=== PATIENT | female | born 1950 | race African-American/Black ===

== ENCOUNTER 2018-06-30 12:39 | Inpatient (IN) | payer MEDICARE, MEDICAID ==
[~2018-06-30] VITALS: Ht 177.8 cm; Wt 54.4 kg
[2018-06-30] VITALS (7 sets, daily range): BP systolic 87–116; BP diastolic 28–50
--- NOTE | 2018-06-30 12:41 | NUR ---
PT BIBA BLS TO BED 6
--- NOTE | 2018-06-30 12:42 | NUR ---
PT. BIB BLS FROM HOME DUE TO WEAKNESS SINCE THIS MORNING. PT. ARRIVES LETHARGIC GCS: 13 ABLE TO OPEN EYES WHEN SPOKEN TO. BS: 84 IN FIELD . BS UPON ARRIVAL 54. ER MD BARKER NOTIFIED. PT STATES " I DONT FEEL GOOD". PER DAUGHTER " SHE HAS DIARRHEA THIS MORNING ONLY ONCE AND SHE SAID SHE FELT WEAK. THIS USUALLY HAPPENS WHEN SHE DOESNT TAKE HER MEDICATION". NO PAIN AT THIS TIME. AFEBRILE AT THIS TIME. RR EVEN AND UNLABORED. VSS STABLE. SKIN WARM AND DRY TO TOUCH. SAFETY PRECAUTIONS IMPLEMENTED. WILL CONTINUE TO MONITOR. ER MD MADE AWARE.
--- NOTE | 2018-06-30 12:43 | NUR ---
BS: 54; ER MD BARKER NOTIFIED. PT PROVIDED WITH 2 ORANGE JUICE BOXES, TOLERATED. WELL.
--- NOTE | 2018-06-30 13:10 | NUR ---
BS: 53; ER MD BARKER NOTIFIED. NO FURTHER ORDERS AT THIS TIME. ORDERED FOOD TRAY
[2018-06-30] MEDS ORDERED: NACL 0.9% 500 ML IV SCH (13:11)
--- NOTE | 2018-06-30 13:20 | NUR ---
FOOD TRAY PROVIDED TO PATIENT. DAUGHTER AT BEDSIDE, HELPING FEED PATIENT AT THIS TIME
[2018-06-30] MEDS ORDERED: SYN.1 PO (13:22)
[2018-06-30] MEDS ORDERED: HYDR10TA1 PO (13:22)
[2018-06-30] MEDS ORDERED: DEXTROSE 10% 250 ML IV SCH ×2 (14:05→16:15)
[2018-06-30] MEDS ORDERED: DEXTROSE 10% 1,000 ML IV ONE ×2 (14:22→16:36)
[2018-06-30 14:26] LABS: BASOPHILS % (AUTO) 0.4 % (0.0-2.0); EOSINOPHILS # (AUTO) 0.3 K/uL (0-0.4); EOSINOPHILS % (AUTO) 3.5 % (0.0-4.0); HEMATOCRIT 34.9 % (36-48); HEMOGLOBIN 11.1 g/dL (12.0-16.0); LYMPHOCYTES # (AUTO) 1.3 K/uL (2.5-16.5); LYMPHOCYTES % (AUTO) 18.5 % (20.5-51.1); MEAN CORPUSCULAR HEMOGLOBIN 25 pg (27-31); MEAN CORPUSCULAR HGB CONC 32 g/dL (33-37); MONOCYTES # (AUTO) 0.5 K/uL (0.8-1.0); MONOCYTES % (AUTO) 6.4 % (1.7-9.3); NEUTROPHILS # (AUTO) 5.2 K/uL (1.8-7.7); NEUTROPHILS % (AUTO) 71.2 % (42.2-75.2); PLATELET COUNT (AUTO) 213 K/uL (140-450); RED BLOOD CELL COUNT(AUTO) 4.42 MIL/uL (4.20-5.40); RED CELL DISTRIBUTION WIDTH 14.8 % (11.6-13.7); WHITE BLOOD COUNT (AUTO) 7.3 K/uL (4.8-10.8)
--- NOTE | 2018-06-30 14:28 | NUR ---
PT. STATES "I FEEL BETTER". VSS. AT BEDSIDE. WILL CONTINUE TO MONITOR. ER MD BARKER AT BEDSIDE.
[2018-06-30 14:52] LABS: ALBUMIN 3.2 g/dL (3.4-5.0); CARBON DIOXIDE 21.2 mmol/L (21-32); CREATININE 1.1 mg/dL (0.6-1.3); POTASSIUM 4.2 mmol/L (3.5-5.1); TOTAL BILIRUBIN 0.4 mg/dL (0.0-1.0)
--- NOTE | 2018-06-30 15:17 | NUR ---
PT. UNABLE TO PROVIDE URINE AT THIS TIME AND REFUSED CATHETER. ER MD BARKER MADE AWARE, PER DOCTOR " IT IS FINE URINE IS NOT NEEDED RIGHT NOW"
[2018-06-30 15:18] LABS: PROTHROMBIN TIME 9.9 secs (10.8-13.4)
[2018-06-30] MEDS ORDERED: ASPIRIN 81 MG TAB.CHEW PO ONE (15:45)
--- NOTE | 2018-06-30 15:50 | NUR ---
PT. HAS BECOME NON COOPERATIVE AT THIS TIME, PT. SOILED SELF AND WAS CHANGED. DAUGHTER STATES " THIS IS NOT LIKE HER THIS IS NOT LIKE MY MOM". ER MD BARKER MADE AWARE.
--- NOTE | 2018-06-30 15:50 | NUR ---
Note mariano in EDM - 06/30/18 at 1649 by PANFILO PT. IS NON COOPERATIVE AT THIS TIME, CAN NOT FOLLOW DIRECTIONS APPROPRIATELY, PT. SOILED SELF AND DAUGHTER STATES " THIS IS NOT LIKE HER. ER MD BARKER MADE AWARE.
--- NOTE | 2018-06-30 15:50 | NUR ---
Note mariano in EDM - 06/30/18 at 1651 by BEN PT. HAS BECOME NON COOPERATIVE AT THIS TIME, PT. SOILED SELF AND WAS CHANGED. DAUGHTER STATES " THIS IS NOT LIKE HER THIS IS NOT LIKE MY MOM". ARTHUR BARKER MADE AWARE.
[2018-06-30] MEDS ORDERED: HYDROcodone/APAP 5/325 MG 1 TAB TAB PO PRN (16:15)
[2018-06-30] MEDS ORDERED: LORazepam 2 MG/ML VIAL IM/IVP PRN (16:15)
[2018-06-30] MEDS ORDERED: DOCUSATE SODIUM 100 MG GELCAP PO PRN (16:15)
[2018-06-30] MEDS ORDERED: ACETAMINOPHEN 325 MG TAB PO PRN (16:15)
[2018-06-30] MEDS: ASPIRIN 81 MG TAB.CHEW PO SCH (16:33)
[2018-06-30] MEDS ORDERED: ENOXAPARIN 60 MG/0.6 ML SYR SUBQ ONE (16:35)
[2018-06-30] MEDS ORDERED: ENOXAPARIN 40 MG/0.4 ML SYR SUBQ ONE (16:40)
--- NOTE | 2018-06-30 16:51 | NUR ---
101 TEMPORAL TEMPERATURE. ER MD BARKER MADE AWARE.
[2018-06-30] MEDS ORDERED: NACL 0.9% 1,000 ML IV ONE (16:55)
--- NOTE | 2018-06-30 16:55 | NUR ---
GCS 10 AT THIS TIME, UNCOOPERATIVE AND LETHARGIC. ER MD BARKER MADE AWARE.
--- NOTE | 2018-06-30 17:05 | NUR ---
TEMP 101.[address] CHEN MADE AWARE STATED " I WILL PUT ORDERS FOR HER".
--- NOTE | 2018-06-30 17:05 | NUR ---
Osorio quintana in EDM - 06/30/18 at 1709 by MEDMARGOT TEMP 101.8 TEMP . ARTHUR ROCA MADE AWARE
--- NOTE | 2018-06-30 17:12 | NUR ---
PT TAKEN TO ICU BY TAYLOR CHAVARRIA AND EMT BIANCA
[2018-06-30] MEDS ORDERED: KETOROLAC 30 MG/ML VIAL IVP SCH (17:16)
[2018-06-30] MEDS ORDERED: HYDROCORTISONE 10 MG TAB PO SCH ×2 (17:16→21:00)
[2018-06-30] MEDS ORDERED: LEVOTHYROXINE 0.1 MG TAB PO SCH (17:17)
--- NOTE | 2018-06-30 17:27 | NUR ---
ADMITTED FROM ER THIS 67 YR OLD FEMALE PER [facility]. [facility]. BY ER NURSES AND PT'S SON WITH CC OF ABD PAIN,VOMITING AND DIARRHEA TODAY. PT IS LETHARGIC. ASSUMES POSITION. DOES NOT RESPOND VERBALLY ABLE TO FOLLOW SIMPLE COMMANDS AT TIMES. PLACED ON FUEL VERIFICATION TECHNICIAN.IN SR WITHOUT ECTOPICS. IV D5 0.9 NS STARTED AT 100 ML/HR STARTED ON RT AC IV SITE. DR. RODRIGUEZ AT BEDSIDE. SPOKE TO PT'S FAMILY RE: PLAN OF CARE. Addendum: 06/30/18 at 2007 by Francia Hatfield RN FUEL VERIFICATION TECHNICIAN SHOWS AFIB CONTROLLED RVR.
--- NOTE | 2018-06-30 17:27 | NUR ---
Patient will be admitted to care of DR. ADRIAN . Admited to ICU . Will go to rooM #5 . Belongings list completed. Report to TAYLOR NAVA .
[2018-06-30] MEDS: BLOOD GLUCOSE MONITORING 1 DEV DEV FS SCH ×2 (17:30→18:36)
--- NOTE | 2018-06-30 17:39 | NUR ---
BS CHECKED 134, DR. SALVADOR AWARE.
--- NOTE | 2018-06-30 17:50 | NUR ---
UNABLE TO TAKE PT.F TO CT SCAN. UNCOOPERATIVE. UNABLE TO STAY ON HER ON HER BACK. KEEPS ON RETURNING TO POSITION.
--- NOTE | 2018-06-30 17:50 | NUR ---
TORADOL 30 MG IVP GIVEN ORDERED.
[2018-06-30] MEDS ORDERED: ACETAMINOPHEN 650 MG SUPP RC PRN (17:55)
[2018-06-30 17:58] LABS: CHOL/HDL RATIO 3.4 (1-4.5); MAGNESIUM 1.6 mg/dL (1.8-2.4); PHOSPHORUS 2.3 mg/dL (2.5-4.9); THYROID STIMULATING HORMONE 0.06 uIU/mL (0.34-3.74)
--- NOTE | 2018-06-30 18:00 | NUR ---
UNABLE TO TAKE PO MEDS DUE TO ALOC. DR. SALVADOR AWARE.
--- NOTE | 2018-06-30 18:06 | NUR ---
TYLENOL 650 MG SUPP. 1 RECTALLY GIVEN FOR FEVER.
[2018-06-30] MEDS ORDERED: DEXTROSE 50% 50 ML SYR IVP PRN (18:10)
[2018-06-30] MEDS ORDERED: ALBUTEROL SULFATE/IPRATROPIU 3 ML SOL IH PRN (18:10)
[2018-06-30] MEDS ORDERED: HYDROmorphone 1 MG/ML AMP IVP SCH (18:40)
[2018-06-30] MEDS ORDERED: LORazepam 2 MG/ML VIAL IVP SCH (18:40)
[2018-06-30] MEDS: DEXT 5% /NACL 0.9% 1,000 ML IV SCH (18:45)
--- NOTE | 2018-06-30 18:45 | NUR ---
BAXTER CATH FR. 16 INSERTED ASEPTICALLY. URINE SPECIMEN SENT TO THE LAB.
[2018-06-30] MEDS ORDERED: HYDROCORTISONE NA SUCC 100 MG/2 ML VIAL IV SCH ×3 (18:46→21:00)
[2018-06-30] MEDS ORDERED: SODIUM PHOS / POTASSIUM PHOS 1 PKT PDR PO SCH (18:51)
[2018-06-30] MEDS ORDERED: MAG SULF 2000 MG/WATER PREMIX 50 ML IV SCH (19:00)
[2018-06-30] MEDS ORDERED: NITROGLYCERIN 0.4 MG TAB SL PRN (19:00)
--- NOTE | 2018-06-30 19:00 | NUR ---
DR. AGUILERA SPOKE TO PT'S DAUGHTER RE: INSERTION OF CENTRAL LINE. CONSENT OBTAINED.
--- NOTE | 2018-06-30 19:10 | NUR ---
DR. BOWIE HERE TO SEE AND EXAMINE PT. REPORT GIVEN TO NAKUL.
--- NOTE | 2018-06-30 19:30 | NUR ---
RECEIVED REPORT FROM MORNING RN FOR CONTINUITY OF CARE. DR. BOWIE AND THE RESIDENT'S DOCTOR ARE AT BEDSIDE TO INSERT CENTRAL LINE. PT IS RESPONSIVE AND ABLE TO MAKE NEEDS KNOWN. PT WAS ABLE TO FOLLOW COMMAND. PT IN ROOM AIR. LUNG SOUNDS CLEAR. RESPIRATIONS EVEN AND UNLABORED. S1+S2 HEARD. SR ON MONITOR. PULSES ARE PALPABLE. BP TO BE MONITOR D/T LOW BP. ABDOMEN ROUND, SOFT, AND NONDISTENDED. BS ACTIVE. BAXTER CATHETER IN PLACE AND DRAINING CLEAR, YELLOW URINE. PT CURRENTLY HAS RIGHT AC 22G THAT IS PATENT, INTACT AND ASYMPTOMATIC.
--- NOTE | 2018-06-30 19:47 | NUR ---
CHECKED PT'S BLOOD GLUCOSE PER DR. POLLOCK; CURRENT PT'S BG 126. NO NEW ORDERS RECEIVED.
[2018-06-30] MEDS ORDERED: VANCOMYCIN PER PHARMACY MC PRN (20:05)
[2018-06-30] MEDS: ATORVASTATIN 20 MG TAB PO SCH (20:36)
[2018-06-30] MEDS ORDERED: VANCOMYCIN 1,000 MG VIAL ONE (20:37)
[2018-06-30 21:00] LABS: APPEARANCE,URINE CLEAR (CLEAR); BILIRUBIN,URINE NEGATIVE (NEGATIVE); BLOOD, URINE MODERATE (NEGATIVE); COLOR,URINE YELLOW (YELLOW); LEUKOCYTE ESTERASE ,URINE NEGATIVE (NEGATIVE); NITRITE, URINE NEGATIVE (NEGATIVE); UGLUCOSE NEGATIVE (NEGATIVE)
[2018-06-30] MEDS ORDERED: VANCOMYCIN HCL 750 MG in DEXTROSE 5% 250 ML IV SCH (21:00)
--- NOTE | 2018-06-30 21:00 | NUR ---
PT'S FAMILY STILL AT BEDSIDE AT THIS TIME. PT IS RESPONSIVE AND SHE IS TALKING TO HER FAMILY. PT APPEARS TO UNDERSTAND WHAT IS GOING ON. TEACHING WAS GIVEN AND PT APPEARS TO HAVE AN UNDERSTANDING
[2018-06-30 21:16] LABS: BARBITURATE, URINE NEG. ng/ml (NEG <=200); BENZODIAZEPINE, URINE NEG. ng/mL (NEG <=200); CANNABINOID, URINE NEG. ng/mL (NEG <=50); COCAINE, URINE NEG. ng/mL (NEG <=300); OPIATE, URINE NEG. ng/mL (NEG <=2000); PHENCYCLIDINE SCREEN,URINE NEG. ng/mL (NEG <=25)
[2018-06-30] MEDS ORDERED: SODIUM PHOS / POTASSIUM PHOS 1 PKT PDR ONE (21:27)
[2018-06-30] MEDS: ONDANSETRON 4 MG/2 ML VIAL IM/IVP PRN (21:36)
[2018-06-30] MEDS ORDERED: metroNIDAZOLE 500 MG/NS PREMIX 100 ML IV SCH (22:30)
[2018-06-30] MEDS ORDERED: LEVOFLOXACIN 500 MG/D5W PREMIX 100 ML IV SCH (23:00)
[2018-07-01] VITALS (51 sets, daily range): BP systolic 50–137; BP diastolic 21–85
[2018-07-01] MEDS ORDERED: PIPER/TAZO 3.375GM/D5W PREMIX 50 ML IV SCH
--- NOTE | 2018-07-01 00:28 | NUR ---
INFORMED DR. POLLOCK REGARDING PT'S BP.
--- NOTE | 2018-07-01 00:30 | NUR ---
DR. POLLOCK AT BEDSIDE. PT WAS SEEN. CENTRAL LINE WAS PULLED OUT ABOUT [address] POLLOCK. CHEST X-RAY TO CONFIRM PLACEMENT AGAIN. RADIOLOGY CALLED TO NOTIFY.
[2018-07-01] MEDS ORDERED: NOREPINEPHRINE 8 MG in DEXTROSE 5% 250 ML IV PRN (02:05)
[2018-07-01] MEDS ORDERED: NACL 0.9% 1,000 ML IV ONE (02:05)
--- NOTE | 2018-07-01 02:15 | NUR ---
DR. POLLOCK STILL AT BEDSIDE. INFORMED THAT PT HAS LOW BP STILL. RECEIVED NEW ORDERS.
[2018-07-01] MEDS ORDERED: NOREPINEPHRINE 4 MG/4 ML VIAL IV ONE (02:26)
--- NOTE | 2018-07-01 02:50 | NUR ---
PT STARTED ON LEVOPHED DRIP. PT DENIES FEELING DIZZY.
[2018-07-01] MEDS ORDERED: DOPamine 400 MG/D5W PREMIX 250 ML IV SCH (03:10)
[2018-07-01] MEDS: DEXT 5% /NACL 0.9% 1,000 ML IV SCH ×2 (03:13→13:25)
--- NOTE | 2018-07-01 03:25 | NUR ---
RESPIRATIONS ARE EVEN AND UNLABORED. NO CHANGE IN CONDITION AT THIS TIME. STILL MONITORING PT'S BLOOD PRESSURE. PT AROUSABLE TO NAME. PT STILL IN ROOM AIR. DENIES ANY DISCOMFORT AT THIS TIME.
[2018-07-01] MEDS ORDERED: DOPamine 400 MG/D5W PREMIX 250 ML IV ONE (03:38)
--- NOTE | 2018-07-01 05:08 | NUR ---
VS STABLE. SB ON MONITOR. NO CHANGE IN PT CONDITION.
[2018-07-01] MEDS: PANTOPRAZOLE 40 MG TABEC PO SCH (05:32)
[2018-07-01] MEDS: LEVOTHYROXINE 0.1 MG TAB PO SCH (05:32)
[2018-07-01] MEDS: HYDROCORTISONE NA SUCC 100 MG/2 ML VIAL IV SCH ×3 (05:32→20:52)
[2018-07-01] MEDS: metroNIDAZOLE 500 MG/NS PREMIX 100 ML IV SCH ×3 (05:32→20:53)
[2018-07-01 06:39] LABS: CARBON DIOXIDE 22.2 mmol/L (21-32); CREATININE 1.4 mg/dL (0.6-1.3); POTASSIUM 4.2 mmol/L (3.5-5.1)
[2018-07-01 06:41] LABS: BASOPHILS % (AUTO) 0.1 % (0.0-2.0); HEMATOCRIT 30.2 % (36-48); HEMOGLOBIN 9.8 g/dL (12.0-16.0); LYMPHOCYTES # (AUTO) 0.5 K/uL (2.5-16.5); LYMPHOCYTES % (AUTO) 7.8 % (20.5-51.1); MEAN CORPUSCULAR HEMOGLOBIN 26 pg (27-31); MEAN CORPUSCULAR HGB CONC 33 g/dL (33-37); MEAN CORPUSCULAR VOLUME 79.1 fL (80-94); MONOCYTES # (AUTO) 0.1 K/uL (0.8-1.0); MONOCYTES % (AUTO) 1.1 % (1.7-9.3); NEUTROPHILS # (AUTO) 5.3 K/uL (1.8-7.7); PLATELET COUNT (AUTO) 183 K/uL (140-450); RED BLOOD CELL COUNT(AUTO) 3.82 MIL/uL (4.20-5.40); RED CELL DISTRIBUTION WIDTH 14.7 % (11.6-13.7); WHITE BLOOD COUNT (AUTO) 5.8 K/uL (4.8-10.8)
[2018-07-01 06:56] LABS: MAGNESIUM 2.1 mg/dL (1.8-2.4); PHOSPHORUS 2.7 mg/dL (2.5-4.9)
--- NOTE | 2018-07-01 07:02 | NUR ---
REPORT GIVEN TO MORNING RN, ALPHONSO, FOR CONTINUITY OF CARE. PT VS STABLE AT THIS TIME.
--- NOTE | 2018-07-01 07:03 | NUR ---
RECEIVED BEDSIDE REPORT FROM REMANUFACTURING TECHNICIAN RN, NAKUL, FOR CONTINUITY OF CARE. PATIENT IS AAOX4, ABLE TO FOLLOW COMMANDS AND MAKE NEEDS KNOWN. PATIENT SKIN IS INTACT, HAS CENTRAL LINE TO RIGHT IJ. PATIENT BREATHING IS EVEN AND UNLABORED. SHE IS FIRST DEGREE AVB ON MONITOR. DENIES ANY N, V, PAIN, SOB. PATIENT HAS BAXTER CATHETER IN PLACE TO CLEAR YELLOW URINE. SAFETY PRECAUTIONS ASSESS AND ENFORCED. CALL LIGHT WITHIN REACH. NO SIGNS OF DISTRESS NOTED. WILL CONTINUE TO MONITOR
--- NOTE | 2018-07-01 07:13 | NUR ---
ENDORSED TO TAYLOR WERNER THAT PT HAS HER IPHONE WITH RED CASE AT BEDSIDE, WELL HER DENTURES.
--- NOTE | 2018-07-01 07:49 | NUR ---
PT WENT FOR CT SCAN. I HOLD TREATMENT AND GIVING WHEN PATIENT COMING BACK.
[2018-07-01] MEDS: ONDANSETRON 4 MG/2 ML VIAL IM/IVP PRN (08:13)
--- NOTE | 2018-07-01 08:27 | NUR ---
PATIENT HAS BEEN SCREENED AND CATEGORIZED HIGH NUTRITION RISK. PATIENT WILL BE SEEN WITHIN 1-2 DAYS OF ADMISSION. 07/01/18-07/02/[address]
--- NOTE | 2018-07-01 08:50 | NUR ---
PATIENT OFF UNIT FOR CT SCAN OF HEAD, PATIENT TOLERATED WELL.
[2018-07-01] MEDS ORDERED: LISINOPRIL 5 MG TAB PO SCH (09:00)
--- NOTE | 2018-07-01 11:04 | NUR ---
DR. POST IN TO SEE AND EXAMINE PATIENT, UPDATED ON PATIENT'S CONDITION. WILL FOLLOW UP WITH ANY ORDERS.
--- NOTE | 2018-07-01 11:50 | NUR ---
DR. PHILLIPS IN TO SEE AND EXAMINE PATIENT, UPDATED ON PATIENT'S CONDITION. WILL FOLLOW UP WITH ANY ORDERS.
[2018-07-01] MEDS: BLOOD GLUCOSE MONITORING 1 DEV DEV FS SCH ×3 (11:53→21:52)
--- NOTE | 2018-07-01 12:00 | NUR ---
PATIENT'S AT BEDSIDE, NO SIGNS OF DISTRESS NOTED. DENIES ANY N, V, PAIN. WILL CONTINUE TO MONITOR
[2018-07-01] MEDS: MIDODRINE 5 MG TAB PO SCH ×2 (12:26→18:32)
[2018-07-01] MEDS ORDERED: PROBIOTIC SCREEN 1 EA MISC MC PRN (13:40)
--- NOTE | 2018-07-01 13:59 | NUR ---
07/01/18 RD INITIAL ASSESSMENT COMPLETED PLEASE REFER TO NUTRITION ASSESSMENT UNDER CARE ACTIVITY FOR ESTIMATED NUTRITIONAL NEEDS. 1. RECOMMEND CONTINUE NPO DIET, UNTIL MEDICALLY APPROPRIATE TO BEGIN NUTRITION 2. WHEN/IF PT MEDICALLY STABLE TO BEGIN NUTRITION, CONSIDER ADVANCE DIET TOLERATED TO RENAL CCHO [address] TO FOLLOW-UP 2-3 DAYS, HIGH RISK MICHELLE TOPETE RD
[2018-07-01] MEDS: NACL 0.9% 1,000 ML IV SCH (15:12)
--- NOTE | 2018-07-01 15:21 | NUR ---
PATIENT DENIES ANY N, V, OR PAIN. WILL CONTINUE TO MONITOR
--- NOTE | 2018-07-01 17:55 | NUR ---
PATIENT FAMILY AT BEDSIDE, PATIENT DENIES ANY N, V, PAIN. CALL LIGHT WITHIN REACH, WILL CONTINUE TO MONITOR
--- NOTE | 2018-07-01 18:29 | NUR ---
* ST NOTE * Pt seen at bedside w/granddaughter present. Pt consenting to evaluation w/granddaughter present. Pt alert, cooperative and engaged throughout session, reporting no c/o pain at this time. Bedside dysphagia and oral mechanism exams completed. See evaluation report for further details. Pt tolerating 6/6 alternating PO trials of regular solid saltine crackers as well as 4/4 alternating PO trials of thin liquid grape juice via a straw, all w/o s/s of aspiration. Pt also tolerating 3/3 PO trials of thin liquid soup via a bowl w/o s/s of aspiration, exhibiting clear voicing WFL w/o wet or gargly vocal quality after PO intake. Pt and granddaughter education completed re: aspiration precautions and safe swallow compensatory strategies pt and caregivers/family could utilize to aid pt w/swallow function, w/pt demonstrating 100% follow through as trained by clinician and w/granddaughter verbalizing understanding and agreement w/clinician's recommendations. It is thus recommended pt's PO diet consistency be upgraded to regular solids w/thin liquids for all meals once pt is medically cleared to advance her diet consistency. No further ST follow up recommended at this time. Pt, caregiver/granddaughter and caregiver/nsg education completed re: results of evaluation; benefits of abiding by aspiration precautions; and prognosis for improvement; with pt, caregiver/granddaughter and caregiver/nsg verbalizing understanding and agreement w/clinician's recommendations. Recommend: - PO diet consistency of REGULAR SOLIDS W/THIN LIQUIDS for all meals once pt has been medically cleared to advance diet consistency - WHOLE PILL MEDICATION ADMINISTRATION - Cue/Remind pt to abide by aspiration precautions during PO intake of solids/liquids/medication No further ST follow up recommended at this time. G8996 CI G8997 CH G8998 NOMS Level 1 Time In/Out 17:45 - 18:15
--- NOTE | 2018-07-01 19:23 | NUR ---
ENDORSED CONTINUITY OF CARE TO DIRECTOR DIGITAL COMMUNICATIONS RNARMANDO. NO SIGNS OF DISTRESS AT THIS TIME
--- NOTE | 2018-07-01 19:30 | NUR ---
RECEIEVED REPORT FROM DAY SHIFT NO ACUTE DISTRESS NOTED. WILL CONTINUE TO MONITOR.
--- NOTE | 2018-07-01 19:45 | NUR ---
PT AOX2 TALKING WITH FAMILY@ BEDSIDE, MOVING EXTREMITIES IN BED. PT DENIES CP/ SOB @ THIS TIME. NSR 60-70S +1 PEDAL PULSES. LUNGS CLEAR TO AUSCULTATION EVEN AND UNLABORED. ABD SOFT NON DISTENDED. TOLERATING LIQUID DIET. BAXTER IN PLACE, CLEAR YELLOW URINE NOTED. SKIN INTACT. CENTRAL LINE IN PLACE R IJ PATENT IVF INFUSING. WILL CONTINUE TO OBSERVE.
[2018-07-01] MEDS: LEVOFLOXACIN 250 MG/D5 PREMIX 50 ML IV SCH (20:53)
[2018-07-01] MEDS: ATORVASTATIN 20 MG TAB PO SCH (20:53)
[2018-07-02] VITALS (7 sets, daily range): BP systolic 111–152; BP diastolic 52–82
--- NOTE | 2018-07-02 00:20 | NUR ---
PT ASLEEP RESTING IN BED, PT AROUSABLE DENIES PAIN @ THIS TIME WILL CONTINUE TO OBSERVE.
[2018-07-02] MEDS: NACL 0.9% 1,000 ML IV SCH (02:30)
[2018-07-02 06:04] LABS: BASOPHILS # (AUTO) 0.1 K/uL (0.00-0.22); BASOPHILS % (AUTO) 0.5 % (0.0-2.0); HEMOGLOBIN 8.8 g/dL (12.0-16.0); LYMPHOCYTES % (AUTO) 7.3 % (20.5-51.1); MEAN CORPUSCULAR HEMOGLOBIN 26 pg (27-31); MEAN CORPUSCULAR HGB CONC 32 g/dL (33-37); MEAN CORPUSCULAR VOLUME 79.1 fL (80-94); MONOCYTES # (AUTO) 0.4 K/uL (0.8-1.0); MONOCYTES % (AUTO) 3.4 % (1.7-9.3); NEUTROPHILS # (AUTO) 11.6 K/uL (1.8-7.7); NEUTROPHILS % (AUTO) 88.8 % (42.2-75.2); PLATELET COUNT (AUTO) 147 K/uL (140-450); RED BLOOD CELL COUNT(AUTO) 3.42 MIL/uL (4.20-5.40); RED CELL DISTRIBUTION WIDTH 14.9 % (11.6-13.7); WHITE BLOOD COUNT (AUTO) 13.1 K/uL (4.8-10.8)
[2018-07-02] MEDS: HYDROCORTISONE NA SUCC 100 MG/2 ML VIAL IV SCH (06:05)
[2018-07-02] MEDS: metroNIDAZOLE 500 MG/NS PREMIX 100 ML IV SCH ×3 (06:05→21:04)
[2018-07-02] MEDS: PANTOPRAZOLE 40 MG TABEC PO SCH (06:06)
[2018-07-02] MEDS: BLOOD GLUCOSE MONITORING 1 DEV DEV FS SCH ×4 (06:06→20:04)
[2018-07-02] MEDS: LEVOTHYROXINE 0.1 MG TAB PO SCH (06:06)
[2018-07-02 06:17] LABS: T4 (THYROXINE) 6.8 ug/dL (4.5-12.0)
--- NOTE | 2018-07-02 06:30 | NUR ---
PT ARRIVED TO UNIT VIA WHEELCHAIR. PT AMBULATED TO BED. RECEIVED REPORT FROM ICU NURSE ARMANDO-TAYLOR AT BEDSIDE. PT AOX2, ON ROOM AIR WITH RIGHT IJ CENTRAL LINE IN PLACE RUNNING NS @100ML/HR. PT ALSO HAS A RIGHT FA #22G- SL. BAXTER CATHETER IN PLACE. DISCUSSED PLAN OF CARE AND PT VERBALIZED UNDERSTANDING. VITAL SIGNS TAKEN AND TOLERATED WELL. NO S/S OF RESPIRATORY DISTRESS OR DISCOMFORT NOTED AT THIS TIME. BED IN LOWEST POSITION, BED BREAKS ON, BOTH SIDE RAILS UP, FALL PRECAUTIONS IN PLACE. WILL CONTINUE TO MONITOR.
--- NOTE | 2018-07-02 06:30 | NUR ---
ENDORSED CARE TO TELE NURSE FOR TRANSFER OF CARE.
[2018-07-02 06:35] LABS: ANION GAP 11.5 (8-16); CARBON DIOXIDE 22.6 mmol/L (21-32); CREATININE 1.1 mg/dL (0.6-1.3); POTASSIUM 4.1 mmol/L (3.5-5.1)
[2018-07-02 06:42] LABS: MAGNESIUM 2.1 mg/dL (1.8-2.4); PHOSPHORUS 2.9 mg/dL (2.5-4.9)
[2018-07-02] MEDS: MIDODRINE 5 MG TAB PO SCH (07:06)
--- NOTE | 2018-07-02 07:06 | NUR ---
SCHEDULED MEDICATION GIVEN AND TOLERATED WELL. NO S/S OF RESPIRATORY DISTRESS OR DISCOMFORT NOTED AT THIS TIME. WILL CONTINUE TO MONITOR.
--- NOTE | 2018-07-02 07:14 | NUR ---
ENDORSED PT CARE TO DAY SHIFT NURSE OTILIA FOR CONTINUITY OF CARE.
--- NOTE | 2018-07-02 07:15 | NUR ---
RECEIVED REPORT FROM THE HOLLOW HANDLE BENCH WORKER NURSE AT BEDSIDE FOR CONTINUITY OF CARE. PT IS AWAKE AND ORIENTED X4. INTRODUCED MYSELF AND UPDATED THE BOARD. PT IS ON TELE. NO SIGNS OF DISTRESS. PER HOLLOW HANDLE BENCH WORKER RN AND PT, PT IS AMBULATORY. SKIN IS INTACT. R IJ AND R FA 22G SL. PT IS GETTING NS AT 100ML VIA IJ. BAXTER CATH IN PLACE. NO COMPLAINTS OF PAIN. DENIES NAUSEA OR VOMITING. SOME ABD PAIN. PER PT, SHE NEEDS TO GO TO THE BATHROOM TO HAVE A BM. DISCONNECTED THE IV SO SHE CAN MOVE FREELY. PT HAD ABOUT 200ML IN HER BAXTER BAG. PT WALKED TO THE BATHROOM. WILL CONTINUE TO MONITOR PT.
--- NOTE | 2018-07-02 07:30 | NUR ---
PT HAD DIARRHEA. COLLECTED SAMPLE. PER C-DIFF PROTOCOL, THIS IS THE FIRST BM IN THE PAST 2 DAYS. WE ARE TO HAVE 3 LIQUID BM WITHIN 24 HR AND PT HAS BEEN ON FLAGYL. PER CHARGE NURSE, THROW AWAY THE BM SAMPLE. WAIT FOR MORE EPISODES OF DIARRHEA.
--- NOTE | 2018-07-02 08:30 | NUR ---
ROUNDING ON PT. PER , D/C SAHIL WORLEY, CANCEL C-DIFF ORDER, D/C TOMORROW.
[2018-07-02] MEDS: LACTOBACILLUS RHAMNOSUS GG 1 EACH CAP PO SCH (08:50)
[2018-07-02] MEDS: ASPIRIN 81 MG TAB.CHEW PO SCH (08:50)
--- NOTE | 2018-07-02 08:55 | NUR ---
ADMINISTERED MORNING MEDS. ASKED THE MD REGARDING GIVING ASPIRIN AND HEPARIN. PER MD, OK TO GIVE. PT TOLERATED WELL. WILL CONTINUE TO MONITOR PT.
[2018-07-02 09:17] LABS: FOLLICLE STIMULATING HORMONE 19.9 mIU/mL (.); LUTEINIZING HORMONE 18.6 mIU/mL (.)
--- NOTE | 2018-07-02 11:09 | NUR ---
D/C'D BAXTER CATHETER. PT TOLERATED WELL. WILL CONTINUE TO MONITOR PT.
--- NOTE | 2018-07-02 11:40 | NUR ---
DC'D IVF ORDERED.
--- NOTE | 2018-07-02 13:41 | NUR ---
PT ON THE PHONE WITH HER DAUGHTER. ASKED PT IF SHE HAD ANOTHER BM TODAY. SHE STATED NO. ONLY 1 EPISODE SO FAR TODAY. DENIES NAUSEA OR VOMITING. NO COMPLAINTS. WILL CONTINUE TO MONITOR PT.
--- NOTE | 2018-07-02 16:10 | NUR ---
PT VISITING WITH FAMILY. NO SIGNS OF DISTRESS. WILL CONTINUE TO MONITOR PT.
[2018-07-02] MEDS ORDERED: HYDROCORTISONE 10 MG TAB PO SCH (17:00)
--- NOTE | 2018-07-02 19:30 | NUR ---
ENDORSED PT TO THE JOB SITE SUPERINTENDENT NURSE AT BEDSIDE FOR CONTINUITY OF CARE. PT IS IN STABLE CONDITION.
--- NOTE | 2018-07-02 19:35 | NUR ---
RECEIVED PATIENT AWAKE RESTING ON BED, AA0X4, EXPLAINED PLAN OF CARE AND VERBALIZED UNDERSTANDING. NO S/S OF DISTRESS NOTED AT THIS TIME. FALL PRECAUTION IN PLACE. CALL LIGHT WITHIN REACH. ALL NEEDS ATTENDED. WILL CONTINUE TO MONITOR.
--- NOTE | 2018-07-02 20:00 | NUR ---
V/S TAKEN AND RECORDED.
[2018-07-02] MEDS: LEVOFLOXACIN 250 MG/D5 PREMIX 50 ML IV SCH (20:04)
[2018-07-02] MEDS: ATORVASTATIN 20 MG TAB PO SCH (20:07)
--- NOTE | 2018-07-02 21:00 | NUR ---
BS TAKEN AND RECORDED. NO COVERAGE PER SLIDING SCALE. SCHEDULE MEDICATION GIVEN. TOLERATED WELL. HOB ELEVATED. CALL LIGHT WITHIN REACH. WILL CONTINUE TO MONITOR.
[2018-07-03] VITALS: BP 116/50
--- NOTE | 2018-07-03 | NUR ---
V/S TAKEN AND RECORDED. PATIENT RESTING COMFORTABLE ON BED. NO S/S OF DISTRESS NOTED AT THIS TIME. CALL LIGHT WITHIN REACH. ALL NEEDS ATTENDED. WOLL CONTINUE TO MONITOR.
--- NOTE | 2018-07-03 02:00 | NUR ---
SEEN PATIENT ASLEEP COMFORTABLE ON BED. NO S/S OF DISTRESS NOTED. WILL CONTINUE TO MONITOR.
[2018-07-03 04:00] VITALS: BP 118/51
[2018-07-03] MEDS: metroNIDAZOLE 500 MG/NS PREMIX 100 ML IV SCH ×2 (04:45→13:05)
[2018-07-03] MEDS ORDERED: INSULIN LISPRO SLIDING SCALE 100 UNITS/ML VIAL SUBQ PRN (05:50)
[2018-07-03] MEDS ORDERED: DEXTROSE 50% 50 ML SYR IVP PRN (05:50)
[2018-07-03] MEDS: LEVOTHYROXINE 0.1 MG TAB PO SCH (06:37)
[2018-07-03] MEDS: PANTOPRAZOLE 40 MG TABEC PO SCH (06:37)
[2018-07-03] MEDS: BLOOD GLUCOSE MONITORING 1 DEV DEV FS SCH ×2 (07:10→12:23)
--- NOTE | 2018-07-03 07:10 | NUR ---
GAVE REPORT TO AM SHIFT NURSE AT BEDSIDE FOR CONTINUITY OF CARE. PATIENT IN STABLE CONDITION.
[2018-07-03 07:19] LABS: BASOPHILS % (AUTO) 0.4 % (0.0-2.0); EOSINOPHILS % (AUTO) 0.4 % (0.0-4.0); HEMATOCRIT 25.3 % (36-48); HEMOGLOBIN 8.3 g/dL (12.0-16.0); LYMPHOCYTES # (AUTO) 2.4 K/uL (2.5-16.5); LYMPHOCYTES % (AUTO) 26.5 % (20.5-51.1); MEAN CORPUSCULAR HEMOGLOBIN 26 pg (27-31); MEAN CORPUSCULAR HGB CONC 33 g/dL (33-37); MEAN CORPUSCULAR VOLUME 79.6 fL (80-94); MONOCYTES # (AUTO) 0.5 K/uL (0.8-1.0); MONOCYTES % (AUTO) 5.1 % (1.7-9.3); NEUTROPHILS # (AUTO) 6.2 K/uL (1.8-7.7); NEUTROPHILS % (AUTO) 67.6 % (42.2-75.2); PLATELET COUNT (AUTO) 147 K/uL (140-450); RED BLOOD CELL COUNT(AUTO) 3.19 MIL/uL (4.20-5.40); WHITE BLOOD COUNT (AUTO) 9.2 K/uL (4.8-10.8)
--- NOTE | 2018-07-03 07:30 | NUR ---
RECEIVED ON BED AAOX4. NO SOB NOTED. NO C/O PAIN AT THIS TIME. WITH RT IJ TRIPLE LUMEN CENTRAL PATENT AND INTACT. CHEST CLEAR. ABDOMEN SOFT, BOWEL SOUNDS PRESENT. NO EDEMA NOTED. INSTRUCTED PT TO CALL FOR ASSISTANCE, CALL LIGHT WITHIN REACH, PT VERBALIZED UNDERSTANDING.
[2018-07-03 08:00] VITALS: BP 128/51
[2018-07-03 08:24] LABS: MAGNESIUM 1.9 mg/dL (1.8-2.4)
[2018-07-03 08:25] LABS: PHOSPHORUS 1.9 mg/dL (2.5-4.9)
[2018-07-03 08:27] LABS: ANION GAP 10.6 (8-16); CARBON DIOXIDE 23.7 mmol/L (21-32); POTASSIUM 3.3 mmol/L (3.5-5.1)
[2018-07-03 08:28] LABS: CREATININE 1.2 mg/dL (0.6-1.3)
[2018-07-03] MEDS ORDERED: HYDROCORTISONE 10 MG TAB PO SCH (09:00)
--- NOTE | 2018-07-03 09:00 | NUR ---
PT CONSUMED ALMOST 100% FOR BREAKFAST. FOOD TOLERATED WELL.
[2018-07-03] MEDS ORDERED: SODIUM PHOS / POTASSIUM PHOS 1 PKT PDR PO SCH ×2 (09:07→21:00)
[2018-07-03] MEDS: ASPIRIN 81 MG TAB.CHEW PO SCH (09:08)
[2018-07-03] MEDS ORDERED: HYDR10TA1 PO (09:09)
[2018-07-03] MEDS: LACTOBACILLUS RHAMNOSUS GG 1 EACH CAP PO SCH (09:09)
[2018-07-03] MEDS ORDERED: HYDR5TAB PO (09:09)
[2018-07-03] MEDS ORDERED: LEVO500T98 PO (09:09)
[2018-07-03] MEDS ORDERED: POTASSIUM CHLORIDE 10 MEQ TABER PO SCH (09:15)
[2018-07-03] MEDS ORDERED: LEVO0.0216 PO (10:58)
[2018-07-03 12:00] VITALS: BP 142/60
--- NOTE | 2018-07-03 12:05 | NUR ---
PT AMBULATING TO THE BATHROOM WITH STANDBY ASSIST. ACTIVITY [id number] WELL.
[2018-07-03] MEDS ORDERED: INFLUENZA VIRUS VACCINE QUAD 0.5 ML SYR IMVAC PRN (12:40)
[2018-07-03] MEDS ORDERED: PNEUMOCOCCAL VACCINE 23 MCG/0.5 ML VIAL IMVAC SCH (12:40)
--- NOTE | 2018-07-03 15:00 | NUR ---
DISCHARGE INSTRUCTIONS AND PRESCRIPTIONS GIVEN TO PT WHICH VERBALIZED FULL UNDERSTANDING OF THE INTRUCTIONS GIVEN AND THE NEED TO FOLLOW UP WITH PCP WITHIN 7 DAYS. RT IJ AND RT FORE ARM IV TERMINATED, CANNULA TIP INTACT. PT TOLERATED WELL.
--- NOTE | 2018-07-03 15:01 | NUR ---
PRESSING DRESSING TO RT IJ CENTRAL SITE APPLIED. WILL MONITOR FOR BLEEDING.
--- NOTE | 2018-07-03 15:35 | NUR ---
PT IS DISCHARGE FROM [facility] FLOOR IN STABLE CONDITION, AMBULATORY, RT IJ CENTRAL LINE SITE PRESSURE DRESSING DRY AND INTACT. NO COMPLAINTS MADE. PT IS D/C HOME WITH DAUGHTER.
[2018-07-04 09:21] LABS: ADRENOCORTICOTROPIC HORMONE <1.1 pg/mL (7.2-63.3); PROLACTIN 0.2 ng/mL (4.8-23.3)
== END 2018-07-03 15:30 | disposition home or self-care (01) | DRG 280 ==
LOC: MED 12:39 → MTU 16:12 → MIC 17:07 → MTU 07-02 06:35
PROVIDERS: ADMIT General Practice; ATTEND General Practice
PROC: 02HV33Z Insertion of Infusion Device into Superior Vena Cava, Percutaneous Approach (ICD-10-PCS; 2018-06-30)
PROC: 3E02340 Introduction of Influenza Vaccine into Muscle, Percutaneous Approach (ICD-10-PCS; principal; 2018-07-03)
PROC: 3E0234Z Introduction of Serum, Toxoid and Vaccine into Muscle, Percutaneous Approach (ICD-10-PCS; 2018-07-03)
DX: I21.4 Non-ST elevation (NSTEMI) myocardial infarction (principal); G93.41 Metabolic encephalopathy; N17.0 Acute kidney failure with tubular necrosis; E44.0 Moderate protein-calorie malnutrition; Z68.1 Body mass index [BMI] 19.9 or less, adult; E11.65 Type 2 diabetes mellitus with hyperglycemia; E03.9 Hypothyroidism, unspecified; I48.91 Unspecified atrial fibrillation; K52.9 Noninfective gastroenteritis and colitis, unspecified; E78.5 Hyperlipidemia, unspecified; T38.0X5A Adverse effect of glucocorticoids and synthetic analogues, initial encounter; E87.6 Hypokalemia; E83.39 Other disorders of phosphorus metabolism; Z23 Encounter for immunization; Y92.89 Other specified places as the place of occurrence of the external cause; Z91.19 Patient's noncompliance with other medical treatment and regimen; Z79.84 Long term (current) use of oral hypoglycemic drugs
CPT/HCPCS: 36415; 70450; 71045; 76770; 80048; 80053; 80305; 81003; 82024; 82533; 82948; 83001; 83002; 83036; 83605; 83690; 83735; 83880; 84100; 84134; 84146; 84436; 84439; 84443; 84479; 84484; 85025; 85610; 85730; 87040; 87081; 87086; 87804; 90658; 90732; 92610; 93005; 93880; 94640; 96372; 99285; J0696; J1170; J1265; J1642; J1644; J1650; J1720; J1815; J1885; J1956; J2060; J2405; J2543; J3370; J3475; J3490; J7030; J7042; J7060; J7620; Q0092

== ENCOUNTER 2018-10-12 15:37 | Emergency (ER) | payer MEDICARE, MEDICAID ==
[~2018-10-12] VITALS: Ht 172.7 cm; Wt 52.6 kg
[~2018-10-12 15:37] MED LIST: HYDR10TA1 PO; HYDR5TAB7 PO; LEVO500T98 PO; SYN.1 PO
[2018-10-12 15:47] VITALS: BP 148/77
--- NOTE | 2018-10-12 16:46 | NUR ---
PT TO ED WITH C/O L ARM PAIN X 4 DAYS. PT DENIES INJURY OR TRAUMA. ROM PRESENT. CMS INTACT. NO OBVIOUS DEFORMITY NOTED. PT PLACED INTO BED, PENDING MD WALLIS.
[2018-10-12 17:46] VITALS: BP 141/81
== END 2018-10-12 17:47 | disposition home or self-care (01) ==
LOC: MED 15:37
DX: S29.012A Strain of muscle and tendon of back wall of thorax, initial encounter (principal); M25.512 Pain in left shoulder; R19.7 Diarrhea, unspecified; R11.10 Vomiting, unspecified; I48.91 Unspecified atrial fibrillation; E11.9 Type 2 diabetes mellitus without complications; Z79.2 Long term (current) use of antibiotics; Z79.899 Other long term (current) drug therapy; X58.XXXA Exposure to other specified factors, initial encounter; Y93.89 Activity, other specified; Y92.89 Other specified places as the place of occurrence of the external cause; Y99.8 Other external cause status
CPT/HCPCS: 73030; 93005; 99283; Q0092

== ENCOUNTER 2020-07-12 11:07 | Emergency (ER) | payer OTHER, MEDICAID ==
[~2020-07-12] VITALS: Ht 172.7 cm; Wt 54.4 kg
[~2020-07-12 11:07] MED LIST changes: +HYDR5TAB6 PO; -HYDR5TAB7 PO
--- NOTE | 2020-07-12 11:09 | NUR ---
Patient BIBA ALS, transferred to bed 6. RN evaluating patient at bedside.
[2020-07-12 11:15] VITALS: BP 137/49
--- NOTE | 2020-07-12 11:56 | NUR ---
69 YEAR OLD FEMALE BIBA FROM HOME FOR GENERALIZED WEAKNESS. PER EMS PT FAMILY WERE ALL TESTED POSITIVE FOR COVID. PER FAMILY PT NORMALLY WALKS AROUND AND ACTIVE, BUT UNABLE TO MOVE MUCH DUE TO WEAKNESS. PT DENIES SOB, SPO2 100% ON RA, RR 25. PT AOX4, BREATHING EVEN ANDN UNLABORED, SKIN WARM AND DRY. BED IN LOWEST POSITION, LOCKED, BED RAIL UPX1. PMH - HYPOTHYROID, HYPERPITUITARY ALLERGIES - NKA
--- NOTE | 2020-07-12 12:05 | NUR ---
Dr. Ambrosio is evaluating the patient at bedside.
[2020-07-12 12:37] LABS: BASOPHILS # (AUTO) 0.1 K/uL (0.00-0.22); LYMPHOCYTES % (AUTO) 36.5 % (20.5-51.1); MONOCYTES # (AUTO) 0.9 K/uL (0.8-1.0)
[2020-07-12 12:39] LABS: BASOPHILS % (AUTO) 1.4 % (0.0-2.0); EOSINOPHILS # (AUTO) 0.1 K/uL (0-0.4); EOSINOPHILS % (AUTO) 0.6 % (0.0-4.0); HEMATOCRIT 36.3 % (36-48); HEMOGLOBIN 11.7 g/dL (12.0-16.0); LYMPHOCYTES # (AUTO) 3.3 K/uL (2.5-16.5); MEAN CORPUSCULAR HEMOGLOBIN 25 pg (27-31); MEAN CORPUSCULAR HGB CONC 32 g/dL (33-37); MEAN CORPUSCULAR VOLUME 78.4 fL (80-94); MONOCYTES % (AUTO) 9.6 % (1.7-9.3); NEUTROPHILS # (AUTO) 4.7 K/uL (1.8-7.7); NEUTROPHILS % (AUTO) 51.9 % (42.2-75.2); PLATELET COUNT (AUTO) 190 K/uL (140-450); RED BLOOD CELL COUNT(AUTO) 4.63 MIL/uL (4.20-5.40); RED CELL DISTRIBUTION WIDTH 14.5 % (11.6-13.7); WHITE BLOOD COUNT (AUTO) 9.1 K/uL (4.8-10.8)
--- NOTE | 2020-07-12 14:00 | NUR ---
PT RESTING WITH EYES CLOSED, BREATHING EVEN AND UNLABORED. PT ON MONITOR VS STABLE.
[2020-07-12 14:01] LABS: ALBUMIN 3.3 g/dL (3.4-5.0); ANION GAP 13.1 (8-16); ASPARTATE AMINOTRANSFERASE 29 U/L (15-37); CARBON DIOXIDE 26.7 mmol/L (21-32); CHLORIDE 101 mmol/L (98-107); CREATININE 1.2 mg/dL (0.6-1.3); GLUCOSE 83 mg/dL (74-106); POTASSIUM 3.8 mmol/L (3.5-5.1); SODIUM SERUM 137 mmol/L (136-145); TOTAL BILIRUBIN 0.6 mg/dL (0.0-1.0); UREA NITROGEN, BLOOD 18 mg/dL (7-18)
[2020-07-12 14:54] LABS: APPEARANCE,URINE HAZY (CLEAR); BILIRUBIN,URINE NEGATIVE (NEGATIVE); BLOOD, URINE 2+ (NEGATIVE); COLOR,URINE YELLOW (YELLOW); LEUKOCYTE ESTERASE ,URINE 2+ (NEGATIVE); NITRITE, URINE NEGATIVE (NEGATIVE); UGLUCOSE NEGATIVE (NEGATIVE)
[2020-07-12 16:04] LABS: RBC,URINE 11-20 (MOD) /HPF (0-5)
[2020-07-12 16:05] LABS: WBC,URINE 20-60 /HPF (0-5)
--- NOTE | 2020-07-12 16:30 | NUR ---
PT RESTING WITH EYES CLOSED, BREATHING EVEN AND UNLABORED. PT ON MONITOR VS STABLE.
[2020-07-12 17:12] VITALS: BP 131/60
--- NOTE | 2020-07-12 17:12 | NUR ---
Patient discharged with v/s stable. Written and verbal after care instructions given and explained. Patient alert, oriented and verbalized understanding of instructions. Ambulatory with steady gait. All questions addressed prior to discharge. ID band removed. Patient advised to follow up with PMD. Rx of Hydrocortisone 20mg and Macrobid 100mg given. Patient educated on indication of medication including possible reaction and side effects. Opportunity to ask questions provided and answered.
== END 2020-07-12 17:12 | disposition home or self-care (01) ==
LOC: MED 11:07
DX: U07.1 COVID-19 (principal); R05 Cough; R53.83 Other fatigue
CPT/HCPCS: 36415; 71045; 80053; 81001; 83880; 84484; 85025; 87040; 87086; 93005; 99285